=== PATIENT | male | born 2000 | race Caucasian/White ===

== ENCOUNTER 2023-03-13 11:49 | Emergency (ER) | payer OTHER, SELFPAY ==
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
[2023-03-13 11:53] VITALS: BP 126/72; PULSE 74; RESP 18; TEMP 36.6; O2SAT 99
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
--- NOTE | 2023-03-13 13:05 | PC.NURSE ---
Pt left before being able to give discharge education and paperwork.
== END 2023-03-13 13:06 | disposition left against medical advice (07) ==
PROVIDERS: Emergency Provider Family Medicine; PCP Emergency Medicine
DX: S39.012A Strain of muscle, fascia and tendon of lower back, initial encounter (principal); S42.401A Unspecified fracture of lower end of right humerus, initial encounter for closed fracture; V49.50XA Passenger injured in collision with unspecified motor vehicles in traffic accident, initial encounter
CPT/HCPCS: 72110; 73080; 99284